=== PATIENT | female | born 1985 ===

== ENCOUNTER 2020-02-10 06:28 | Inpatient (IN) | payer OTHER ==
[~2020-02-10] VITALS: Ht 165.1 cm; Wt 3.2 kg
[2020-02-10] MEDS ORDERED: PRENATAL TABLE1 EACH PO (13:15)
== END 2020-02-13 15:06 | disposition home or self-care (01) | DRG 788 ==
LOC: LDR 06:28 → OB/GYN 06:28 → O/R 13:35 → OB/GYN 16:32
PROVIDERS: ADMIT Obstetrics & Gynecology
PROC: 0UB60ZX Excision of Left Fallopian Tube, Open Approach, Diagnostic (ICD-10-PCS; 2020-02-10)
PROC: 3E033VJ Introduction of Other Hormone into Peripheral Vein, Percutaneous Approach (ICD-10-PCS; 2020-02-10)
PROC: 4A1HXCZ Monitoring of Products of Conception, Cardiac Rate, External Approach (ICD-10-PCS; 2020-02-10)
PROC: 10D00Z1 Extraction of Products of Conception, Low, Open Approach (ICD-10-PCS; principal; 2020-02-10 13:15)
DX: O64.8XX0 Obstructed labor due to other malposition and malpresentation, not applicable or unspecified (principal); N83.8 Other noninflammatory disorders of ovary, fallopian tube and broad ligament; Z3A.39 39 weeks gestation of pregnancy; Z37.0 Single live birth